=== PATIENT | female | born 1980 | race African-American/Black ===

== ENCOUNTER 2020-12-09 21:56 | Inpatient (IN) ==
[2020-12-09] MEDS ORDERED: SODIUM CHLORIDE 0.9% 1,000 ML IV STA ×2 (22:33→22:45)
[2020-12-09] MEDS ORDERED: ONDANSETRON 4 MG/2 ML VIAL IV ONE ×2 (22:33→22:45)
[2020-12-09 23:00] LABS: Basophils % 0.2 % (0.0-0.8); Eosinophils % 0.1 % (0.00-10.9); Hematocrit 40.4 VOL% (35.7-47.0); Hemoglobin 13.4 GM/DL (12.0-16.0); Immature Granulocytes % 0.5 %; Immature Granulocytes Absolute 0.09 #; Lymphocytes # 2.7 10*3/uL (1.4-4.0); Lymphocytes % 15.7 % (21.3-54.2); Mean Corpuscular HGB Conc 33.2 GM/DL (32-36); Mean Corpuscular Volume 84.7 FL (87-102); Mean Platelet Volume 11.3 FL (9.6-12.0); Monocytes % 8.1 % (1.7-12.7); Neutrophils % 75.4 % (38.7-73.9); Platelet Count 449 T/CUMM (130-400); Red Blood Count 4.77 MC/CUMM (3.8-5.5); Red Cell Distribution Width 13.2 % (9.3-17.3); White Blood Count 17.4 T/CUMM (4-12)
[2020-12-09 23:21] LABS: Albumin 3.9 G/DL (3.4-5.0); Bilirubin,Total 0.5 MG/DL (0.20-1.00); Calcium 9.8 MG/DL (8.5-10.1); Osmolality,Calculated 278.5 MOS/KG (273-304); Potassium 2.9 MMOL/L (3.5-5.1); Total Protein 8.1 G/DL (6.4-8.2)
[2020-12-09] MEDS ORDERED: POTASSIUM CHLORIDE 20 MEQ TABLET PO STA (23:32)
[2020-12-09] MEDS ORDERED: ALUM/MAG/SIMETH/LIDO VISC 1:1 30 ML BOTTLE PO STA (23:32)
[2020-12-09] MEDS ORDERED: LABETALOL 20 MG/4 ML SYRINGE IV ONE (23:40)
[2020-12-09] MEDS ORDERED: LABETALOL 20 MG/4 ML SYRINGE IV STA (23:40)
[2020-12-09 23:42] LABS: ABG Base Excess 0.6 MMOL/L (-2.5-2.5); ABG HCO3 24.9 MMOL/L (20-26); ABG Oxygen Saturation 96.1 % (95-100); ABG PCO2 39.3 MM HG (35-48); ABG PH 7.413 (7.35-7.45); ABG TCO2 22.1 MMOL/L (23-27)
[2020-12-10 00:05] LABS: Bacteria,Urine Occasional /HPF (Few); Bilirubin,Urine Negative (Negative); Blood, Urine Negative (Negative); Glucose,Urine (UA) 50 mg/dL (Negative); Ketones,Urine 80 mg/dL (Negative); Mucus,Urine Occasional /LPF (Occasional); Nitrite,Urine Negative (Negative); Protein,Urine 30 MG/DL; RBC,Urine 1 /HPF (0-4); Urine Appearance CLEAR (Clear); Urine Color Yellow (Yellow); Urine Specific Gravity 1.017 (1.001-1.035); Urine Urobilinogen < 2.0 EU/DL (0.2-1.0)
[2020-12-10] MEDS ORDERED: hydrALAZINE 20 MG/1 ML VIAL IV STA (01:08)
[2020-12-10] MEDS ORDERED: LABETALOL 20 MG/4 ML SYRINGE IV STA (01:43)
[2020-12-10] MEDS ORDERED: SODIUM CHLORIDE 0.9% 1,000 ML IV STA (01:43)
[2020-12-10] MEDS: niCARdipine INJ 25 MG in SODIUM CHLORIDE 0.9% 240 ML IV SCH (02:10)
[2020-12-10 03:29] LABS: Barbiturates Screen,Urine Negative (Negative); Benzodiazepines Screen,Urine Negative (Negative); Cannabinoid Screen,Urine Negative (Negative); Opiate Screen,Urine Negative (Negative); Phencyclidine Screen,Urine Negative (Negative)
[2020-12-10] MEDS ORDERED: GLUCAGON 1 MG VIAL IM PRN ×2 (04:58→07:38)
[2020-12-10] MEDS ORDERED: DEXTROSE 50% 25 GM/50 ML VIAL IV PRN ×2 (04:58→07:38)
[2020-12-10] MEDS ORDERED: BISACODYL 5 MG TABLET PO PRN (05:05)
[2020-12-10] MEDS ORDERED: DOCUSATE SODIUM 100 MG CAPSULE PO PRN (05:05)
[2020-12-10] MEDS ORDERED: INSULIN REGULAR 100 UNIT/ML IV STA (05:05)
[2020-12-10] MEDS ORDERED: NICOTINE 21 MG/24 HR PATCH TRANSDERM PRN (05:05)
[2020-12-10] MEDS ORDERED: LACTULOSE 20 GM/30 ML UDCUP PO PRN (05:05)
[2020-12-10 05:17] LABS: Basophils % 0.2 % (0.0-0.8); Eosinophils % 0.1 % (0.00-10.9); Hematocrit 38.8 VOL% (35.7-47.0); Hemoglobin 13.1 GM/DL (12.0-16.0); Immature Granulocytes Absolute 0.16 #; Lymphocytes # 3.2 10*3/uL (1.4-4.0); Lymphocytes % 20.6 % (21.3-54.2); Mean Corpuscular HGB Conc 33.8 GM/DL (32-36); Mean Corpuscular Volume 85.7 FL (87-102); Mean Platelet Volume 11.6 FL (9.6-12.0); Monocytes % 8.9 % (1.7-12.7); Neutrophils % 69.2 % (38.7-73.9); Platelet Count 411 T/CUMM (130-400); Red Blood Count 4.53 MC/CUMM (3.8-5.5); Red Cell Distribution Width 13.2 % (9.3-17.3); White Blood Count 15.5 T/CUMM (4-12)
[2020-12-10] MEDS ORDERED: INSULIN LISPRO 100 UNIT/ML SUBCUT STA (05:25)
[2020-12-10 05:42] LABS: Albumin 3.4 G/DL (3.4-5.0); Bilirubin,Total 0.5 MG/DL (0.20-1.00); Osmolality,Calculated 277.5 MOS/KG (273-304); Potassium 3.1 MMOL/L (3.5-5.1); Total Protein 7.3 G/DL (6.4-8.2)
[2020-12-10] MEDS: PROMETHAZINE INJ 12.5 MG in SODIUM CHLORIDE 0.9% 50 ML IV PRN ×2 (07:20→18:28)
[2020-12-10] MEDS: LACTATED RINGERS 1,000 ML IV SCH ×2 (07:20→13:54)
[2020-12-10] MEDS ORDERED: INSULIN LISPRO 100 UNIT/ML SUBCUT SCH (07:30)
[2020-12-10] MEDS ORDERED: POTASSIUM CHLORIDE RIDER 20 MEQ/100 ML PREMIX IV PRN (10:14)
[2020-12-10] MEDS: ENOXAPARIN 40 MG/0.4 ML SYRINGE SUBCUT SCH (10:14)
[2020-12-10] MEDS: amLODIPine 10 MG TABLET PO SCH (10:15)
[2020-12-10] MEDS: PANTOPRAZOLE 40 MG VIAL IV SCH (11:58)
[2020-12-10] MEDS: hydrALAZINE 20 MG/1 ML VIAL IV SCH ×2 (11:58→17:14)
[2020-12-10] MEDS: INSULIN LISPRO 100 UNIT/ML SUBCUT SCH ×3 (11:59→21:18)
[2020-12-10] MEDS: POLYETHYLENE GLYCOL POWDER 17 GM PACK PO SCH ×2 (11:59→21:19)
[2020-12-10] MEDS: POTASSIUM CHLORIDE RIDER 10 MEQ/100 ML PREMIX IV PRN ×7 (13:06→16:16)
[2020-12-10] MEDS ORDERED: ONDANSETRON ODT 4 MG TABLET PO PRN (13:24)
[2020-12-10] MEDS ORDERED: BISACODYL 10 MG SUPP RECTAL PRN (13:26)
[2020-12-10] MEDS: ONDANSETRON 4 MG/2 ML VIAL IV PRN (13:54)
[2020-12-10] MEDS ORDERED: SODIUM PHOSPHATE ENEMA 133 ML BOTTLE RECTAL PRN (16:40)
[2020-12-10] MEDS ORDERED: SODIUM PHOSPHATE ENEMA 133 ML BOTTLE RECTAL ONE (16:40)
[2020-12-10] MEDS ORDERED: KETOROLAC 30 MG/1 ML VIAL ONE (20:38)
[2020-12-10] MEDS: KETOROLAC 15 MG/1 ML VIAL IV PRN (21:06)
[2020-12-10] MEDS: INSULIN GLARGINE 100 UNIT/ML SUBCUT SCH (21:19)
[2020-12-11] MEDS: hydrALAZINE 20 MG/1 ML VIAL IV SCH ×4 (00:50→17:41)
[2020-12-11] MEDS: LACTATED RINGERS 1,000 ML IV SCH ×2 (00:52→07:06)
[2020-12-11] MEDS: ONDANSETRON 4 MG/2 ML VIAL IV PRN ×4 (01:57→20:54)
[2020-12-11] MEDS: KETOROLAC 15 MG/1 ML VIAL IV PRN ×3 (03:13→17:42)
[2020-12-11] MEDS: niCARdipine INJ 25 MG in SODIUM CHLORIDE 0.9% 240 ML IV SCH (04:24)
[2020-12-11 06:07] LABS: Albumin 3.1 G/DL (3.4-5.0); Bilirubin,Total 0.6 MG/DL (0.20-1.00); Calcium 9.3 MG/DL (8.5-10.1); Osmolality,Calculated 272.8 MOS/KG (273-304); Total Protein 6.8 G/DL (6.4-8.2)
[2020-12-11] MEDS: ENOXAPARIN 40 MG/0.4 ML SYRINGE SUBCUT SCH (08:07)
[2020-12-11] MEDS: amLODIPine 10 MG TABLET PO SCH (08:07)
[2020-12-11] MEDS: POLYETHYLENE GLYCOL POWDER 17 GM PACK PO SCH ×2 (08:07→21:07)
[2020-12-11] MEDS: INSULIN LISPRO 100 UNIT/ML SUBCUT SCH ×4 (08:08→20:48)
[2020-12-11] MEDS ORDERED: POTASSIUM CHLORIDE 20 MEQ TABLET PO STA (08:49)
[2020-12-11] MEDS: PANTOPRAZOLE 40 MG VIAL IV SCH (10:03)
[2020-12-11] MEDS: SODIUM CHLOR 0.9% KCL 20 MEQ 20 MEQ/1,000 ML BAG IV SCH ×3 (10:04→21:05)
[2020-12-11 12:34] LABS: Calcium 9.2 MG/DL (8.5-10.1); Osmolality,Calculated 265.4 MOS/KG (273-304); Potassium 3.2 MMOL/L (3.5-5.1)
[2020-12-11] MEDS: ACETAMINOPHEN 325 MG TABLET PO PRN (14:10)
[2020-12-11] MEDS: METOCLOPRAMIDE 10 MG/2 ML VIAL IV SCH (17:41)
[2020-12-11] MEDS: INSULIN GLARGINE 100 UNIT/ML SUBCUT SCH (20:48)
[2020-12-12] MEDS: METOCLOPRAMIDE 10 MG/2 ML VIAL IV SCH ×3 (00:59→14:56)
[2020-12-12] MEDS: hydrALAZINE 20 MG/1 ML VIAL IV SCH ×5 (00:59→22:47)
[2020-12-12] MEDS: SODIUM CHLOR 0.9% KCL 20 MEQ 20 MEQ/1,000 ML BAG IV SCH ×3 (04:33→19:25)
[2020-12-12] MEDS: INSULIN LISPRO 100 UNIT/ML SUBCUT SCH ×4 (08:23→20:47)
[2020-12-12] MEDS ORDERED: cloNIDine 0.1 MG/24 HR PATCH TRANSDERM STA (09:15)
[2020-12-12] MEDS: POLYETHYLENE GLYCOL POWDER 17 GM PACK PO SCH ×2 (09:38→20:48)
[2020-12-12] MEDS: amLODIPine 10 MG TABLET PO SCH (09:38)
[2020-12-12] MEDS: ENOXAPARIN 40 MG/0.4 ML SYRINGE SUBCUT SCH (09:38)
[2020-12-12] MEDS: PANTOPRAZOLE 40 MG VIAL IV SCH (09:38)
[2020-12-12] MEDS ORDERED: PALIPERIDONE 3 MG TABLET PO SCH (13:00)
[2020-12-12] MEDS: ACETAMINOPHEN 325 MG TABLET PO PRN (18:21)
[2020-12-12] MEDS: INSULIN GLARGINE 100 UNIT/ML SUBCUT SCH (20:47)
[2020-12-12] MEDS: traZODone 50 MG TABLET PO SCH (20:47)
[2020-12-12] MEDS: PALIPERIDONE 6 MG PO SCH (20:48)
[2020-12-12] MEDS: OXcarbazepine 300 MG TABLET PO SCH (20:48)
[2020-12-13] MEDS: SODIUM CHLOR 0.9% KCL 20 MEQ 20 MEQ/1,000 ML BAG IV SCH ×2 (02:22→09:48)
[2020-12-13] MEDS: hydrALAZINE 20 MG/1 ML VIAL IV SCH ×3 (04:09→16:44)
[2020-12-13 04:59] LABS: Basophils % 0.2 % (0.0-0.8); Eosinophils # 0.1 10*3/uL (0.0-0.87); Eosinophils % 1.5 % (0.00-10.9); Hematocrit 38.7 VOL% (35.7-47.0); Hemoglobin 12.8 GM/DL (12.0-16.0); Immature Granulocytes % 0.4 %; Immature Granulocytes Absolute 0.04 #; Lymphocytes # 3.2 10*3/uL (1.4-4.0); Lymphocytes % 34.5 % (21.3-54.2); Mean Corpuscular HGB Conc 33.1 GM/DL (32-36); Mean Corpuscular Volume 84.5 FL (87-102); Mean Platelet Volume 11.6 FL (9.6-12.0); Neutrophils % 55.4 % (38.7-73.9); Platelet Count 359 T/CUMM (130-400); Red Blood Count 4.58 MC/CUMM (3.8-5.5); Red Cell Distribution Width 12.5 % (9.3-17.3); White Blood Count 9.4 T/CUMM (4-12)
[2020-12-13] MEDS: ACETAMINOPHEN 325 MG TABLET PO PRN ×2 (05:09→21:33)
[2020-12-13 05:27] LABS: Calcium 8.9 MG/DL (8.5-10.1); Osmolality,Calculated 273.7 MOS/KG (273-304)
[2020-12-13 05:32] LABS: Alanine Aminotransferase < 9 U/L (13-56); Albumin 2.8 G/DL (3.4-5.0); Alkaline Phosphatase 97 U/L (45-117); Aspartate Amino Transferase 9 U/L (0-37); Blood Urea Nitrogen 5 MG/DL (7-18); Calcium 8.9 MG/DL (8.5-10.1); Carbon Dioxide 25 MMOL/L (21-32); Estimated Glom Filtration Rate 146 ML/MIN; Glucose 151 MG/DL (74-106); Osmolality,Calculated 272.8 MOS/KG (273-304); Potassium 2.9 MMOL/L (3.5-5.1); Sodium 137 MMOL/L (136-145); Total Protein 6.3 G/DL (6.4-8.2)
[2020-12-13] MEDS ORDERED: POTASSIUM CHLORIDE 20 MEQ TABLET PO STA (07:31)
[2020-12-13] MEDS ORDERED: POTASSIUM CHLORIDE 20 MEQ TABLET PO ONE ×2 (07:32→11:00)
[2020-12-13] MEDS ORDERED: POTASSIUM CHLORIDE RIDER 20 MEQ/100 ML PREMIX IV PRN (07:59)
[2020-12-13] MEDS: INSULIN LISPRO 100 UNIT/ML SUBCUT SCH ×4 (08:24→21:39)
[2020-12-13] MEDS ORDERED: MAGNESIUM SULF RIDER 2 GM/50 ML PREMIX IV ONE (08:30)
[2020-12-13] MEDS ORDERED: GLUCAGON 1 MG VIAL IM PRN (09:08)
[2020-12-13] MEDS ORDERED: DEXTROSE 50% 25 GM/50 ML VIAL IV PRN (09:08)
[2020-12-13] MEDS: ENOXAPARIN 40 MG/0.4 ML SYRINGE SUBCUT SCH (09:32)
[2020-12-13] MEDS: MAGNESIUM OXIDE 400 MG TABLET PO SCH ×3 (09:32→21:05)
[2020-12-13] MEDS: PANTOPRAZOLE 40 MG VIAL IV SCH ×2 (09:32→09:48)
[2020-12-13] MEDS: OXcarbazepine 300 MG TABLET PO SCH ×2 (09:32→21:06)
[2020-12-13] MEDS: POLYETHYLENE GLYCOL POWDER 17 GM PACK PO SCH ×2 (09:32→21:06)
[2020-12-13] MEDS: amLODIPine 10 MG TABLET PO SCH (09:32)
[2020-12-13] MEDS ORDERED: PIOGLITAZONE 15 MG TABLET PO SCH (09:45)
[2020-12-13] MEDS: PALIPERIDONE 3 MG PO SCH (11:18)
[2020-12-13 11:28] LABS: Calcium 9.2 MG/DL (8.5-10.1); Osmolality,Calculated 267.2 MOS/KG (273-304); Potassium 3.5 MMOL/L (3.5-5.1)
[2020-12-13] MEDS: lisinopriL 10 MG TABLET PO SCH (12:11)
[2020-12-13] MEDS: ACYCLOVIR 5% OINT 15 GM TUBE TOP SCH ×4 (12:11→23:47)
[2020-12-13 17:34] LABS: Calcium 9.1 MG/DL (8.5-10.1); Osmolality,Calculated 269.2 MOS/KG (273-304); Potassium 3.6 MMOL/L (3.5-5.1)
[2020-12-13] MEDS: traZODone 50 MG TABLET PO SCH (21:06)
[2020-12-13] MEDS: CEFUROXIME 500 MG TABLET PO SCH (21:06)
[2020-12-13] MEDS: INSULIN GLARGINE 100 UNIT/ML SUBCUT SCH (21:39)
[2020-12-13] MEDS: PALIPERIDONE 6 MG PO SCH (21:40)
[2020-12-14] MEDS: hydrALAZINE 20 MG/1 ML VIAL IV SCH ×5 (00:05→23:39)
[2020-12-14] MEDS ORDERED: VANCOMYCIN INJ 1,000 MG in SODIUM CHLORIDE 0.9% 250 ML IV ONE (06:00)
[2020-12-14 06:54] LABS: Basophils % 0.3 % (0.0-0.8); Eosinophils # 0.1 10*3/uL (0.0-0.87); Eosinophils % 1.8 % (0.00-10.9); Hematocrit 35.8 VOL% (35.7-47.0); Hemoglobin 12.2 GM/DL (12.0-16.0); Immature Granulocytes % 0.4 %; Immature Granulocytes Absolute 0.03 #; Lymphocytes # 3.5 10*3/uL (1.4-4.0); Lymphocytes % 48.6 % (21.3-54.2); Mean Corpuscular HGB Conc 34.1 GM/DL (32-36); Mean Corpuscular Volume 86.5 FL (87-102); Mean Platelet Volume 12.8 FL (9.6-12.0); Monocytes % 8.6 % (1.7-12.7); Neutrophils % 40.3 % (38.7-73.9); Red Blood Count 4.14 MC/CUMM (3.8-5.5); Red Cell Distribution Width 12.7 % (9.3-17.3); White Blood Count 7.3 T/CUMM (4-12)
[2020-12-14 06:58] LABS: Platelet Count 262 T/CUMM (130-400)
[2020-12-14 07:09] LABS: Calcium 8.7 MG/DL (8.5-10.1); Osmolality,Calculated 271.1 MOS/KG (273-304); Potassium 3.6 MMOL/L (3.5-5.1)
[2020-12-14 07:19] LABS: Hypochromasia 1+
[2020-12-14 07:20] LABS: Microcytosis 1+; Platelet Estimate Normal
[2020-12-14] MEDS: ACYCLOVIR 5% OINT 15 GM TUBE TOP SCH ×5 (07:39→21:59)
[2020-12-14] MEDS ORDERED: PIOGLITAZONE 15 MG TABLET PO SCH (09:00)
[2020-12-14] MEDS ORDERED: fentaNYL 100 MCG/2 ML VIAL ONE (10:24)
[2020-12-14] MEDS ORDERED: MIDAZOLAM 2 MG/2 ML VIAL ONE (10:24)
[2020-12-14] MEDS ORDERED: LACTATED RINGERS 1,000 ML IV SCH (10:30)
[2020-12-14] MEDS ORDERED: ONDANSETRON 4 MG/2 ML VIAL ONE (10:39)
[2020-12-14] MEDS ORDERED: LIDOCAINE 2% 5 ML VIAL ONE (10:39)
[2020-12-14] MEDS ORDERED: SEVOFLURANE 1 UNIT/15 MINUTE INH ONE (10:39)
[2020-12-14] MEDS ORDERED: DEXAMETHASONE 4 MG/1 ML VIAL ONE (10:39)
[2020-12-14] MEDS ORDERED: propofoL 200 MG/20 ML VIAL IV ONE (10:39)
[2020-12-14] MEDS: INSULIN LISPRO 100 UNIT/ML SUBCUT SCH ×4 (11:11→22:17)
[2020-12-14] MEDS: PIOGLITAZONE 15 MG TABLET PO SCH (11:12)
[2020-12-14] MEDS: CEFUROXIME 500 MG TABLET PO SCH ×2 (11:12→20:20)
[2020-12-14] MEDS: MAGNESIUM OXIDE 400 MG TABLET PO SCH ×3 (11:13→20:20)
[2020-12-14] MEDS: PALIPERIDONE 3 MG PO SCH (11:15)
[2020-12-14] MEDS: POLYETHYLENE GLYCOL POWDER 17 GM PACK PO SCH ×2 (11:15→20:21)
[2020-12-14] MEDS: amLODIPine 10 MG TABLET PO SCH (11:15)
[2020-12-14] MEDS: lisinopriL 10 MG TABLET PO SCH (11:15)
[2020-12-14] MEDS: OXcarbazepine 300 MG TABLET PO SCH ×2 (11:16→20:20)
[2020-12-14] MEDS: PANTOPRAZOLE 40 MG VIAL IV SCH (11:16)
[2020-12-14] MEDS ORDERED: ONDANSETRON 4 MG/2 ML VIAL IV PRN (11:19)
[2020-12-14] MEDS ORDERED: HYDROmorphone 2 MG/1 ML VIAL ONE (11:20)
[2020-12-14] MEDS: HYDROmorphone 2 MG/1 ML VIAL IV PRN ×2 (11:23→11:28)
[2020-12-14] MEDS: SODIUM CHLOR 0.9% KCL 20 MEQ 20 MEQ/1,000 ML BAG IV SCH ×3 (12:50→12:51)
[2020-12-14] MEDS: traZODone 50 MG TABLET PO SCH (20:20)
[2020-12-14] MEDS: KETOROLAC 15 MG/1 ML VIAL IV PRN (20:22)
[2020-12-14] MEDS: INSULIN GLARGINE 100 UNIT/ML SUBCUT SCH (22:18)
[2020-12-14] MEDS: PALIPERIDONE 6 MG PO SCH (22:19)
[2020-12-15] MEDS: ACETAMINOPHEN 325 MG TABLET PO PRN (05:51)
[2020-12-15] MEDS: hydrALAZINE 20 MG/1 ML VIAL IV SCH ×4 (05:54→22:40)
[2020-12-15] MEDS: ACYCLOVIR 5% OINT 15 GM TUBE TOP SCH ×5 (06:45→21:27)
[2020-12-15] MEDS: SODIUM CHLOR 0.9% KCL 20 MEQ 20 MEQ/1,000 ML BAG IV SCH ×4 (07:11→21:26)
[2020-12-15] MEDS: PALIPERIDONE 3 MG PO SCH (09:31)
[2020-12-15] MEDS: INSULIN LISPRO 100 UNIT/ML SUBCUT SCH ×4 (09:31→21:26)
[2020-12-15] MEDS: PANTOPRAZOLE 40 MG VIAL IV SCH (09:31)
[2020-12-15] MEDS ORDERED: ONDANSETRON ODT 4 MG TABLET PO PRN (09:36)
[2020-12-15] MEDS ORDERED: HALOPERIDOL 5 MG/ML AMP IM ONE (10:26)
[2020-12-15] MEDS ORDERED: LORazepam 2 MG/1 ML VIAL IM ONE (10:27)
[2020-12-15 10:56] LABS: Metanephrine, Free 0.26 nmol/L (<0.50); Normetanephrine, Free 1.6 nmol/L (<0.90)
[2020-12-15] MEDS: POLYETHYLENE GLYCOL POWDER 17 GM PACK PO SCH ×2 (11:22→21:26)
[2020-12-15] MEDS: MAGNESIUM OXIDE 400 MG TABLET PO SCH ×3 (11:22→21:26)
[2020-12-15] MEDS: CEFUROXIME 500 MG TABLET PO SCH ×2 (14:03→21:26)
[2020-12-15] MEDS: lisinopriL 10 MG TABLET PO SCH (14:03)
[2020-12-15] MEDS: amLODIPine 10 MG TABLET PO SCH (14:03)
[2020-12-15] MEDS: OXcarbazepine 300 MG TABLET PO SCH ×2 (14:03→21:27)
[2020-12-15] MEDS: PIOGLITAZONE 15 MG TABLET PO SCH (14:03)
[2020-12-15] MEDS: SULFAMETHOX/TRIMETHOPRIM 800-160 MG TABLET PO SCH (17:58)
[2020-12-15] MEDS: traZODone 50 MG TABLET PO SCH (21:26)
[2020-12-15] MEDS: PALIPERIDONE 6 MG PO SCH (21:26)
[2020-12-15] MEDS: INSULIN GLARGINE 100 UNIT/ML SUBCUT SCH (21:26)
[2020-12-16] MEDS: hydrALAZINE 20 MG/1 ML VIAL IV SCH ×3 (04:07→17:16)
[2020-12-16] MEDS: SODIUM CHLOR 0.9% KCL 20 MEQ 20 MEQ/1,000 ML BAG IV SCH ×4 (04:07→17:16)
[2020-12-16] MEDS: ACYCLOVIR 5% OINT 15 GM TUBE TOP SCH ×5 (05:59→21:55)
[2020-12-16 07:42] LABS: Basophils % 0.2 % (0.0-0.8); Eosinophils % 0.4 % (0.00-10.9); Hematocrit 41.9 VOL% (35.7-47.0); Hemoglobin 13.4 GM/DL (12.0-16.0); Immature Granulocytes % 0.4 %; Immature Granulocytes Absolute 0.04 #; Lymphocytes # 3.3 10*3/uL (1.4-4.0); Lymphocytes % 31.3 % (21.3-54.2); Mean Corpuscular Volume 85.7 FL (87-102); Mean Platelet Volume 11.4 FL (9.6-12.0); Monocytes % 7.8 % (1.7-12.7); Neutrophils % 59.9 % (38.7-73.9); Platelet Count 402 T/CUMM (130-400); Red Blood Count 4.89 MC/CUMM (3.8-5.5); White Blood Count 10.6 T/CUMM (4-12)
[2020-12-16 07:58] LABS: Osmolality,Calculated 269.4 MOS/KG (273-304); Potassium 3.5 MMOL/L (3.5-5.1)
[2020-12-16] MEDS: INSULIN LISPRO 100 UNIT/ML SUBCUT SCH ×5 (09:45→21:09)
[2020-12-16] MEDS ORDERED: HALOPERIDOL 5 MG/ML AMP IM PRN (10:30)
[2020-12-16] MEDS ORDERED: LORazepam 2 MG/1 ML VIAL IM PRN (10:31)
[2020-12-16] MEDS: CEFUROXIME 500 MG TABLET PO SCH ×2 (10:36→21:09)
[2020-12-16] MEDS: PIOGLITAZONE 15 MG TABLET PO SCH (10:36)
[2020-12-16] MEDS: SULFAMETHOX/TRIMETHOPRIM 800-160 MG TABLET PO SCH ×2 (10:36→17:16)
[2020-12-16] MEDS: MAGNESIUM OXIDE 400 MG TABLET PO SCH ×3 (10:37→21:09)
[2020-12-16] MEDS: OXcarbazepine 300 MG TABLET PO SCH ×2 (10:37→21:10)
[2020-12-16] MEDS: POLYETHYLENE GLYCOL POWDER 17 GM PACK PO SCH ×2 (10:37→21:09)
[2020-12-16] MEDS: PALIPERIDONE 3 MG PO SCH (10:37)
[2020-12-16] MEDS: amLODIPine 10 MG TABLET PO SCH (10:37)
[2020-12-16] MEDS: lisinopriL 10 MG TABLET PO SCH (10:37)
[2020-12-16] MEDS: PANTOPRAZOLE 40 MG VIAL IV SCH (10:37)
[2020-12-16] MEDS: LACTULOSE 20 GM/30 ML UDCUP PO SCH ×3 (13:46→21:55)
[2020-12-16] MEDS: traZODone 50 MG TABLET PO SCH (21:09)
[2020-12-16] MEDS: INSULIN GLARGINE 100 UNIT/ML SUBCUT SCH (21:09)
[2020-12-16] MEDS: PALIPERIDONE 6 MG PO SCH (21:09)
[2020-12-17] MEDS: hydrALAZINE 20 MG/1 ML VIAL IV SCH ×4 (00:04→16:12)
[2020-12-17] MEDS: SODIUM CHLOR 0.9% KCL 20 MEQ 20 MEQ/1,000 ML BAG IV SCH ×4 (00:05→17:32)
[2020-12-17] MEDS: LACTULOSE 20 GM/30 ML UDCUP PO SCH ×6 (01:45→16:50)
[2020-12-17] MEDS: ACYCLOVIR 5% OINT 15 GM TUBE TOP SCH ×4 (05:45→17:31)
[2020-12-17 08:03] VITALS: BP 180/143
[2020-12-17] MEDS: SULFAMETHOX/TRIMETHOPRIM 800-160 MG TABLET PO SCH ×2 (08:09→16:12)
[2020-12-17] MEDS: PIOGLITAZONE 15 MG TABLET PO SCH (08:09)
[2020-12-17] MEDS: INSULIN LISPRO 100 UNIT/ML SUBCUT SCH ×4 (08:09→20:08)
[2020-12-17] MEDS: amLODIPine 10 MG TABLET PO SCH ×2 (08:10→11:54)
[2020-12-17] MEDS: PANTOPRAZOLE 40 MG VIAL IV SCH (08:10)
[2020-12-17] MEDS: POLYETHYLENE GLYCOL POWDER 17 GM PACK PO SCH ×2 (08:10→20:08)
[2020-12-17] MEDS: PALIPERIDONE 3 MG PO SCH (08:10)
[2020-12-17] MEDS: MAGNESIUM OXIDE 400 MG TABLET PO SCH ×3 (08:10→20:08)
[2020-12-17] MEDS: CEFUROXIME 500 MG TABLET PO SCH ×2 (08:10→20:08)
[2020-12-17] MEDS: lisinopriL 10 MG TABLET PO SCH (08:10)
[2020-12-17] MEDS: OXcarbazepine 300 MG TABLET PO SCH ×2 (08:10→20:08)
[2020-12-17] MEDS ORDERED: MAGNESIUM CITRATE 300 ML BOTTLE PO ONE (09:49)
[2020-12-17] MEDS: INSULIN GLARGINE 100 UNIT/ML SUBCUT SCH (20:08)
[2020-12-17] MEDS: PALIPERIDONE 6 MG PO SCH (20:08)
[2020-12-17] MEDS: traZODone 50 MG TABLET PO SCH (20:08)
== END 2020-12-17 20:16 | disposition home health service (06) | DRG 629 ==
LOC: EDBD → EDUNIT# → N.ED 21:56 → SUATTDRO 12-10 04:58 → N.EDINP 12-10 04:58 → N.3E 12-10 06:31
PROVIDERS: ADMIT Internal Medicine; ATTEND Hospitalist

== ENCOUNTER 2021-01-25 09:37 | Observation (INO) ==
[2021-01-25] MEDS ORDERED: ONDANSETRON 4 MG/2 ML VIAL IV STA (10:06)
[2021-01-25] MEDS ORDERED: HYDROmorphone 2 MG/1 ML VIAL IV STA (10:07)
[2021-01-25 10:44] LABS: Bacteria,Urine Occasional /HPF (Few); Bilirubin,Urine Negative (Negative); Blood, Urine Negative (Negative); Glucose,Urine (UA) Negative (Negative); Ketones,Urine 5 mg/dL (Negative); Mucus,Urine Occasional /LPF (Occasional); Nitrite,Urine Negative (Negative); Protein,Urine Negative; RBC,Urine 2 /HPF (0-4); Squamous Epithelial Cell,Urine Few /HPF (0-10); Urine Appearance Slightly Hazy (Clear); Urine Color Yellow (Yellow); Urine Specific Gravity 1.012 (1.001-1.035); Urine Urobilinogen < 2.0 EU/DL (0.2-1.0)
[2021-01-25 10:56] LABS: Basophils % 0.3 % (0.0-0.8); Eosinophils # 0.1 10*3/uL (0.0-0.87); Eosinophils % 0.6 % (0.00-10.9); Hematocrit 43.1 VOL% (35.7-47.0); Hemoglobin 14.2 GM/DL (12.0-16.0); Immature Granulocytes % 0.3 %; Immature Granulocytes Absolute 0.03 #; Lymphocytes # 3.6 10*3/uL (1.4-4.0); Mean Corpuscular HGB Conc 32.9 GM/DL (32-36); Mean Corpuscular Volume 82.3 FL (87-102); Mean Platelet Volume 10.5 FL (9.6-12.0); Monocytes % 9.3 % (1.7-12.7); Neutrophils % 51.5 % (38.7-73.9); Platelet Count 420 T/CUMM (130-400); Red Blood Count 5.24 MC/CUMM (3.8-5.5); Red Cell Distribution Width 12.4 % (9.3-17.3); White Blood Count 9.5 T/CUMM (4-12)
[2021-01-25 11:11] LABS: Albumin 3.7 G/DL (3.4-5.0); Bilirubin,Total 0.8 MG/DL (0.20-1.00); Osmolality,Calculated 261.7 MOS/KG (273-304); Potassium 2.8 MMOL/L (3.5-5.1); Total Protein 8.3 G/DL (6.4-8.2)
[2021-01-25 11:14] LABS: Lithium < 0.2 MMOL/L (0.6-1.2); Valproic Acid < 3.0 UG/ML (50-100)
[2021-01-25] MEDS: POTASSIUM CHLORIDE RIDER 10 MEQ/100 ML PREMIX IV SCH ×2 (11:32→12:55)
[2021-01-25] MEDS ORDERED: ACETAMINOPHEN 325 MG TABLET PO PRN (14:58)
[2021-01-25] MEDS ORDERED: MAGNESIUM HYDROXIDE SUSP 30 ML UDCUP PO ONE (14:58)
[2021-01-25] MEDS ORDERED: DEXTROSE 50% 25 GM/50 ML VIAL IV PRN (14:58)
[2021-01-25] MEDS ORDERED: SIMETHICONE CHEW 125 MG TABLET PO PRN (14:58)
[2021-01-25] MEDS ORDERED: MAGNESIUM HYDROXIDE SUSP 30 ML UDCUP PO PRN (14:58)
[2021-01-25] MEDS ORDERED: GLUCAGON 1 MG VIAL IM PRN (14:58)
[2021-01-25] MEDS ORDERED: ENOXAPARIN 40 MG/0.4 ML SYRINGE SUBCUT SCH (15:00)
[2021-01-25 16:22] LABS: Risk Ratio 4.21; Thyroid Stimulating Hormone 1.69 uIU/ml (0.358-3.74); VLDL Cholesterol 26.6 MG/DL
[2021-01-25] MEDS: METOCLOPRAMIDE 10 MG TABLET PO SCH ×2 (17:04→21:22)
[2021-01-25] MEDS: SODIUM CHLOR 0.9% KCL 40 MEQ 40 MEQ/1,000 ML BAG IV SCH ×2 (17:46→22:50)
[2021-01-25] MEDS ORDERED: risperiDONE 1 MG TABLET PO SCH (21:00)
[2021-01-25] MEDS ORDERED: DIVALPROEX ER 250 MG TABLET PO SCH (21:00)
[2021-01-25] MEDS ORDERED: LITHIUM CARBONATE 150 MG CAPSULE PO SCH (21:00)
[2021-01-25] MEDS: DOCUSATE SODIUM 100 MG CAPSULE PO SCH (21:23)
[2021-01-25] MEDS: ONDANSETRON 4 MG/2 ML VIAL IV PRN (22:52)
[2021-01-26] MEDS: SODIUM CHLOR 0.9% KCL 40 MEQ 40 MEQ/1,000 ML BAG IV SCH ×2 (02:22→04:32)
[2021-01-26] MEDS: ONDANSETRON 4 MG/2 ML VIAL IV PRN ×2 (02:24→07:41)
[2021-01-26 06:26] LABS: Basophils % 0.4 % (0.0-0.8); Eosinophils # 0.1 10*3/uL (0.0-0.87); Eosinophils % 1.4 % (0.00-10.9); Hemoglobin 12.1 GM/DL (12.0-16.0); Immature Granulocytes % 0.2 %; Immature Granulocytes Absolute 0.02 #; Lymphocytes # 4.2 10*3/uL (1.4-4.0); Mean Corpuscular HGB Conc 33.6 GM/DL (32-36); Mean Corpuscular Volume 82.2 FL (87-102); Monocytes % 9.8 % (1.7-12.7); Neutrophils % 36.2 % (38.7-73.9); Platelet Count 375 T/CUMM (130-400); Red Blood Count 4.38 MC/CUMM (3.8-5.5); Red Cell Distribution Width 12.5 % (9.3-17.3); White Blood Count 8.1 T/CUMM (4-12)
[2021-01-26 06:54] LABS: Calcium 8.8 MG/DL (8.5-10.1); Lymphocytes 59 % (20-55); Platelet Estimate Adequate; Potassium 4.1 MMOL/L (3.5-5.1); Segmented Neutrophils 35 % (50-85); Total Cells Counted 100
[2021-01-26 06:55] LABS: Hypochromasia Slight; Microcytosis Slight
[2021-01-26 08:20] VITALS: BP 138/106
[2021-01-26] MEDS ORDERED: LACTATED RINGERS 1,000 ML IV SCH (09:00)
[2021-01-26] MEDS: DOCUSATE SODIUM 100 MG CAPSULE PO SCH (09:28)
[2021-01-26] MEDS: METOCLOPRAMIDE 10 MG TABLET PO SCH (09:28)
[2021-01-26] MEDS ORDERED: HALOPERIDOL 5 MG TABLET PO PRN (10:05)
[2021-01-26] MEDS ORDERED: LORazepam 2 MG/1 ML VIAL IV PRN (10:15)
[2021-01-26] MEDS ORDERED: SUCRALFATE 1 GM TABLET PO SCH (12:00)
[2021-01-26] MEDS ORDERED: LORazepam 2 MG/1 ML VIAL IM PRN (13:30)
[2021-01-26] MEDS ORDERED: METOCLOPRAMIDE 10 MG/2 ML VIAL IV SCH (15:00)
[2021-01-26] MEDS ORDERED: METOCLOPRAMIDE 10 MG TABLET PO SCH (15:00)
[2021-01-26] MEDS ORDERED: DICYCLOMINE 20 MG TABLET PO SCH (15:00)
[2021-01-26] MEDS ORDERED: POTASSIUM CHLORIDE 20 MEQ TABLET PO SCH (21:00)
[2021-01-27] MEDS ORDERED: PANTOPRAZOLE 40 MG TABLET PO SCH (06:30)
== END 2021-01-26 14:49 ==
LOC: EDBD → EDUNIT# → N.ED 09:37 → N.EDINP 09:37 → N.5E 16:06
PROVIDERS: ADMIT Internal Medicine; ATTEND Internal Medicine